=== PATIENT | male | born 1950 | race Caucasian/White ===

== ENCOUNTER 2021-03-17 07:51 | Outpatient (CLI) | payer MEDICARE ==
[2021-03-17 08:51] VITALS: BP 123/84
--- NOTE | 2021-03-17 08:51 | SLEEP CARE CONSULTATION ---
Information from patient questionnaire entered by Joyce Hackett. I have reviewed and concur with the information entered by Joyce Hackett. This document represents the service I personally performed and the decisions made by me, Sobeida Gillespie ARNP. History of Present Illness Service Date and Time: 03/17/2021 0751 Reason for Visit: New patient, Previously diagnosed sleep apnea, sleep apnea on CPAP therapy Chief Complaint: reports: Other (update supplies) Date of Onset: entire adult life Usual bedtime: 9: - 10 pm Time it takes to fall asleep: 5 minutes Snores at night: Yes (without CPAP) Observed to quit breathing while asleep: Yes Sleeps alone due to snoring: No Number of times waking at night: 1 Reasons for waking at night: reports: Bathroom Toss, Turn, or Twitch while sleeping: Yes Recalls having dreams: Yes Usually gets out of bed at: 6-7 am Feels refreshed in the morning: Yes Morning headache: No Sleepy or fatigued during the day: No Ever fallen asleep while driving: No Takes day naps: No Dreams during day naps: No Prior sleep studies: Yes Year and Where: mid - [facility] in [place], [place] Additional HPI information: RAUL GARLAND was previously diagnosed to have unknown severity sleep apnea- hypopnea syndrome and comes in today to establish care for CPAP therapy. He moved to the area in November 2020 and needs to establish care to get supplies. - Parasomnia Symptoms Ever been unable to move upon waking from sleep: No Walks in sleep: No Talks in sleep: No Ever acted out dreams in sleep: No Ever felt weak in the knees when startled or emotional: No Bothered by creepy, crawly, restless sensations in legs: No Problems with memory or concentration: No CPAP Compliance Data - Data Reviewed with Patient Average duration of nightly device use: 7 hr 57 min Compliance rate %: 100 (180 days) Current pressure setting (cmH2O): 6.6-11 Average residual AHI: 1.0 Compliance data discussion: He has been getting his supplies from [employer]. He is using a [employer] Seal ([id number]), size medium mask. He has backup if needed. He last changed out the mask about a month ago. Subjective Patient concerns: reports: condensation in mask/hose (occasionally). denies: aerophagia, mask discomfort, air blowing in eyes, mask leak noise, nasal congestion, dry mouth, nose, throat, epistaxis, other Observed to snore while using device: No Current pressure setting perceived as: comfortable On therapy, patient: reports: sleeping better, awakening more refreshed, being more awake and alert during the day, more rested overall. denies: drowsiness while driving Initial [place] Sleepiness Scale score: 11 (in 2020) Past Medical History Past Medical History: reports: Arthritis, Coronary Heart Disease, Asthma, Other (hay fever, ulcerative colitis) Social History The patient's occupation is a Retired. Patient is and lives in [place]. Have you smoked in the past 12 months: No Alcohol use: Yes Alcohol amount and frequency: 4 glasses a week spread over sunday-sunday Caffeine use: Yes Caffeine amount and frequency: 1 cup every day Family History Family history of sleep disordered breathing: Yes Family Hx Sleep Apnea: Father: Snoring Allergies and Home Medications Drug allergies reviewed: Yes (niacin, morphine (vomit)) Home medication list reviewed: Yes Allergy and home medication list: Metoprolol Tartrate Balsalazide Atorvastatin Review of Systems Weight gain over past 5 years: 10 Cardiovascular: denies: high blood pressure Gastrointestinal: reports: other (ulcerative colitis). denies: heartburn Neurological: denies: headaches Psychiatric: denies: anxiety, depression Ear/Nose/Throat: reports: nasal congestion, sinus problems, tonsillectomy, wisdom teeth removed (upper) Immunologic: reports: sneezing, allergies to food or environment Physical Exam Blood Pressure: 123/84 Cuff size: wrist Heart Rate: 47 O2 Saturation: 98 Height: 5 ft 8 in Weight: 200 lb Body Mass Index: 30.4 BMI Classification: Obese Impression and Plan 1. Obstructive Sleep Apnea-Hypopnea Syndrome, unknown, with good treatment compliance and good apnea control. On CPAP therapy, the patient has better sleep quality and is more rested overall. He is very satisfied with his CPAP therapy and intends to use long-term. He was advised that we need a copy of his last sleep study before we can fax order for his supplies to be updated. He will try to get this and if unable we will order a sleep study to verify diagnosis and severity. He voice understanding and agreement with plan of care. He was encouraged to lose weight and patient voiced understanding. Patient's apnea severity and rationale for treatment to reduce apnea, improve sleep quality and reduce cardiovascular and cerebrovascular events was reviewed. I also reviewed the benefit of consistent device use of CPAP for cardiac disease. * Continue auto CPAP pressure at 6.6-11 cmH2O * Notify me if snoring with mask or feeling that the pressure is too much or too little * Attempt to lose weight * Call this office if any problems using CPAP * Return for follow up in 1 year, or sooner if concerns arise Counseling Topics: Spare mask, Weight loss health impact Visit Type: In Office Time Spent with Patient (minutes): 30 Provider Statement: I spent 100% of the Face to Face Visit with the patient with greater than 50% spent counseling the patient and coordination of care.
== END 2021-03-17 07:52 | disposition home or self-care (01) ==
LOC: SC 07:51
PROVIDERS: ATTEND Nurse Practitioner Family
DX: G47.33 Obstructive sleep apnea (adult) (pediatric) (principal); E66.9 Obesity, unspecified; Z68.30 Body mass index [BMI] 30.0-30.9, adult
CPT/HCPCS: 99203; G0463; 99212

== ENCOUNTER 2021-04-01 08:51 | Outpatient (CLI) | payer MEDICARE | END 2021-04-01 08:52 | disposition home or self-care (01) | LOC: SC 08:51 | PROVIDERS: ATTEND Nurse Practitioner Family | DX: G47.33 Obstructive sleep apnea (adult) (pediatric) (principal); R09.02 Hypoxemia; E66.9 Obesity, unspecified; Z68.30 Body mass index [BMI] 30.0-30.9, adult | CPT/HCPCS: G0399 ×2; 95806 ==

== ENCOUNTER 2021-04-14 13:33 | Outpatient (CLI) | payer MEDICARE ==
--- NOTE | 2021-04-14 14:06 | SLEEP CARE CONSULTATION ---
Information from patient questionnaire entered by Joyce Hackett. I have reviewed and concur with the information entered by Joyce Hackett. This document represents the service I personally performed and the decisions made by , Sobeida Gillespie ARNP. History of Present Illness Service Date and Time: 04/14/2021 1333 Initial [place] Sleepiness Scale score: 11 (in 2020) Current [place] Sleepiness Scale score: 4 Additional HPI information: RAUL GARLAND returns via Telehealth visit for follow up and results of the recently performed home sleep study. I explained the pathophysiology behind obstructive sleep apnea. We then spent quite a bit of time discussing different treatment options. For mild obstructive sleep apnea, surgery and oral appliance are alternatives to nasal CPAP therapy but in moderate or severe cases, nasal CPAP is the most effective and reliable treatment. I reviewed the impact of weight changes on sleep apnea and recommended losing weight. Patient to continue with use of CPAP. Study was ordered to verify diagnosis and severity since his last sleep study was unavailable. Patient was cautioned about risks of drowsy driving until sleepiness symptoms resolve. Sleep Study - Results Type of Sleep Study: Home sleep study Prior sleep studies: Yes Year and Where: mid - [facility] in [place], [place] Polysomnography/Home Sleep Study results: Physician Impression: The quality of the study is good. The length of the study is adequate (> 240 minutes). Please also see the tabulated and graphic data. 1. Obstructive Sleep Apnea-Hypopnea (ICD-10 G47.33), moderate, with an AHI of 28.4/hr and chester SaO2 of 58%. During the study, the patient had 204 apneas (203 obstructive, 0 central, 1 mixed) and 30 hypopneas. The longest episode lasted 138.5 seconds. The respiratory events occurred more frequently during supine sleep (supine AHI was 54.0 and non-supine, 9.70). 2. Hypoxemia (ICD-10 R09.02), severe, with the lowest oxygen saturation of 58 % and 68.7 minutes with SaO2 under 90%. Baseline oxygen saturation was normal (Average oxygen saturation was 93%). Allergies and Home Medications Home medication list reviewed: Yes (no new meds) Review of Systems Review of systems same as previous: Yes (no changes) Physical Exam Vital signs obtained and entered by: Telehealth visit, no vitals obtained Height: 5 ft 8 in Impression and Plan 1. Obstructive Sleep Apnea-Hypopnea Syndrome, moderate, with lowest oxygen saturation of 58%. Positive pressure therapy could benefit cardiac disease (right ventricle irregularity). The patient will be continued on nasal autoCPAP therapy with pressure set at 6.6-11 cmH2O. Compliance guidelines also reviewed. Patient is compliant with his CPAP use and I will fill out a prescription to update his supplies since he has not been able to get any for the last 6 months. I will follow-up with him next year. 2. Hypoxemia, severe, with the lowest oxygen saturation of 58 % and 68.7 minutes with SaO2 under 90%. His baseline oxygen saturation was normal with an average oxygen saturation of 93%. Patient has a history of cardiac disease and he was advised to follow up with his PCP as needed. * Continue auto CPAP pressure at 6.6-11 cmH2O * Update supplies * Follow up as needed with PCP for severe Hypoxemia * Notify me if snoring with mask or feeling that the pressure is too much or too little * Attempt to lose weight * Call this office if any problems using CPAP * Return for follow up in 1 year, or sooner if concerns arise Counseling Topics: Weight loss health impact Visit Type: Telehealth Video Video Type: VSee Patient Location: Home Location of Provider: Office Patient agrees and consents to this telehealth visit type: Yes Patient agrees to have their insurance billed: Yes Provider Statement: I spent 100% of the Telehealth Video Call with the patient with greater than 50% spent counseling the patient and coordination of care.
== END 2021-04-14 13:34 | disposition home or self-care (01) ==
LOC: SC 13:33
PROVIDERS: ATTEND Nurse Practitioner Family
DX: G47.33 Obstructive sleep apnea (adult) (pediatric) (principal); R09.02 Hypoxemia

== ENCOUNTER 2022-08-17 09:42 | Outpatient (CLI) | payer MEDICARE ==
[2022-08-17 10:26] VITALS: BP 140/90
--- NOTE | 2022-08-17 10:26 | SLEEP CARE CONSULTATION ---
Information from patient questionnaire entered by Carlita Landers. I have reviewed and concur with the information entered by Carlita Landers. This document represents the service I personally performed and the decisions made by me, Sobeida Gillespie ARNP. History of Present Illness Service Date and Time: 08/17/2022 0942 Previous diagnosis: Moderate, Obstructive Sleep Apnea-Hypopnea Syndrome AHI: 28.4 Reason for follow up: annual (LAST SEEN ) Equipment type: CPAP Equipment obtained from: [facility] (getting supplies as needed) Mask style: Nasal Backup mask available: Yes (old mask) Last cushion change: 2 weeks Prior sleep studies: Yes Year and Where: mid - [place], [place] Type of Sleep Study: Home sleep study HPI additional information: RAUL GARLAND was diagnosed to have moderate, AHI 28.4, obstructive sleep apnea-hypopnea syndrome and returned today for CPAP therapy annual follow-up. Sleep Study - Results Type of Sleep Study: Home sleep study Prior sleep studies: Yes Year and Where: - [place], [place] CPAP Compliance Data - Data Reviewed with Patient Average duration of nightly device use: 8 hours 5 minutes Compliance rate %: 100 (180/180 days used) Current pressure setting (cmH2O): 6-9 Average residual AHI: 1.7 Central apnea: 0.2 Obstructive apnea: 0.6 Subjective Patient concerns: reports: mask leak noise (from condensation), condensation in mask/hose, epistaxis (improved, hx of bloody noses/sinus issue; vaseline at night helps too). denies: aerophagia, mask discomfort, air blowing in eyes, nasal congestion, dry mouth, nose, throat Observed to snore while using device: No Current pressure setting perceived as: comfortable On therapy, patient: reports: sleeping better, awakening more refreshed, being more awake and alert during the day, more rested overall. denies: drowsiness while driving Initial [place] Sleepiness Scale score: 11 (in 2020) Current [place] Sleepiness Scale score: 8 (08/17/2022) Allergies and Home Medications Drug allergies reviewed: Yes (NKDA) Home medication list reviewed: Yes (no changes) Review of Systems Review of systems same as previous: Yes (no changes) Physical Exam Vital signs obtained and entered by: CARLITA Paulson MA Blood Pressure: 140/90 (left arm) Cuff size: regular Heart Rate: 68 O2 Saturation: 98 Height: 5 ft 8 in Weight: 132 lb 9.6 oz Body Mass Index: 20.1 BMI Classification: Normal Impression and Plan 1. Obstructive Sleep Apnea-Hypopnea Syndrome, moderate, with good treatment compliance and good apnea control. On CPAP therapy, the patient has better sleep quality and is more rested overall. Patient has been getting some condensation in his mask/tubing waking up because of the noise and his mask being wet. He does use the humidity on his machine, otherwise he gets really dry and has more epistaxis. He has a long history of sinus issues and bloody noses. They have improved when he remembers to use his Vaseline and humidity on the CPAP. He stated that he did not have a heated hose for his machine and I encouraged him to order one from his DME to use with his [employer]Med because this can help reduce condensation in tubing and mask. He voiced understanding. Patient has significant improvement of their sleep apnea and are satisfied with current CPAP therapy. Patient's apnea severity and rationale for treatment to reduce apnea, improve sleep quality and reduce cardiovascular and cerebrovascular events was reviewed. I also reviewed the benefit of consistent device use of CPAP for cardiac disease. * Continue auto CPAP pressure at 6-9 cmH2O * Update supplies * Notify me if snoring with mask or feeling that the pressure is too much or too little * Call this office if any problems using CPAP * Return for follow up in 1 year, or sooner if concerns arise Counseling Topics: Spare mask Visit Type: In Office Time Spent with Patient (minutes): 21 Provider Statement: I spent 100% of the Face to Face Visit with the patient with greater than 50% spent counseling the patient and coordination of care.
== END 2022-08-17 09:43 | disposition home or self-care (01) ==
LOC: SC 09:42
PROVIDERS: ATTEND Nurse Practitioner Family
DX: G47.33 Obstructive sleep apnea (adult) (pediatric) (principal)
CPT/HCPCS: 99213; G0463; 99212

== ENCOUNTER 2022-12-14 11:58 | Day surgery (SDC) | payer MEDICARE ==
[2022-12-14] MEDS ORDERED: LACTATED RINGERS 1,000 ML IV ONE ×2 (12:28→14:42)
[2022-12-14] MEDS ORDERED: LIDOCAINE MPF 2%-EPI 1:200000 20 ML VIAL ONE (12:36)
[2022-12-14] MEDS ORDERED: BUPIVACAINE 0.25% PF 30 ML VIAL ONE (12:36)
[2022-12-14] MEDS ORDERED: LIDOCAINE-PF 2% 10 ML AMP SUBQ ONE (12:44)
--- NOTE | 2022-12-14 12:57 | ANESTHESIA ---
Pre-Anesthesia VS, & Labs - Diagnosis Epidermal inclusion cysts at posterior neck (3) - Procedure excision cysts at posterior neck Vital Signs: Temp Pulse Resp BP Pulse Ox O2 Flow Rate 36.2 C L 59 L 10 L 155/90 H 100 12/14/22 12:25 12/14/22 12:25 12/14/22 12:25 12/14/22 12:25 12/14/22 12:25 Height: 5 ft 8 in Weight (kg): 87 kg Body Mass Index: 29.1 BMI Classification: Overweight - NPO >8 hours - Lab Results Lab results reviewed: Yes Home Medications and Allergies Home Medications: Ambulatory Orders Aspirin [Aspirin EC] 81 mg PO DAILY 12/08/22 Balsalazide Disodium [Colazal] 750 mg PO DAILY 12/08/22 Cholecalciferol [Vitamin D3] 25 mcg PO DAILY 12/08/22 Glucos Sul 2Kcl/MSM/Chond/C/Mn [Glucosamine Chondroitin Cap] 1 each PO DAILY 12/08/22 Metoprolol Tartrate [Lopressor] 25 mg PO BID 12/08/22 Multivitamin 1 each PO DAILY 12/08/22 [place]-3/Dha/Epa/Fish Oil [Fish Oil 1,000 mg Softgel] 1 each PO DAILY 12/08/22 Simvastatin [Zocor] 40 mg PO DAILY 12/08/22 Aspirin [Aspirin EC] 81 mg PO DAILY 12/08/22 Balsalazide Disodium [Colazal] 750 mg PO DAILY 12/08/22 Cholecalciferol [Vitamin D3] 25 mcg PO DAILY 12/08/22 Glucos Sul 2Kcl/MSM/Chond/C/Mn [Glucosamine Chondroitin Cap] 1 each PO DAILY 12/08/22 Metoprolol Tartrate [Lopressor] 25 mg PO BID 12/08/22 Multivitamin 1 each PO DAILY 12/08/22 [place]-3/Dha/Epa/Fish Oil [Fish Oil 1,000 mg Softgel] 1 each PO DAILY 12/08/22 Simvastatin [Zocor] 40 mg PO DAILY 12/08/22 Allergies/Adverse Reactions: Allergies Allergy/AdvReac Type Severity Reaction Status Date / Time No Known Drug Allergies Allergy Verified 08/17/22 10:04 Anes History & Medical History - Anesthetic History Anesthesia Complications: reports: No previous complications Family history of Anesthesia Complications: Denies Family history of Malignant Hyperthermia: Denies - Medical History Cardiovascular: reports: Hypertension, High cholesterol Pulmonary: reports: Sleep apnea, CPAP use Gastrointestinal: reports: Ulcerative colitis Urinary: reports: None Musculoskeletal: reports: None Endocrine/Autoimmune: reports: None Skin: reports: None - Surgical History General: reports: Appendectomy, Colonoscopy Eyes Ears Nose Throat (EENT): reports: Other Orthopedic: reports: Spine surgery Dermatologic: reports: Other (arm cyst excision in office) Exam General: Alert, Oriented x3, Cooperative Dental: WNL Mouth Openin Fingerbreadth Neck Mobility: Normal Mallampati classification: II Thyromental Distance: 4-6 cm Respiratory: Lungs clear, Normal breath sounds, No respiratory distress Cardiovascular: Regular rate Neurological: Normal speech Mental/Cognitive Status: Alert/Oriented X3, Normal for patient Cognitive Status: Within normal limits Plan Anesthesia Type: MAC, Total IV (backup) Consent for Procedure(s) Verified and Reviewed: Yes Code Status: Attempt Resuscitation ASA classification: 2-Mild systemic disease Is this case an emergency?: No
--- NOTE | 2022-12-14 13:52 | HISTORY & PHYSICAL EXAMINATION ---
Chief Complaint - Chief Complaint Chief Complaint: neck cysts History of Present Illness - History Obtained From Records Reviewed: yes History obtained from: pt Exam Limitations: none - History of Present Illness HPI Comment/Other: posterior neck cysts and history neck cyst pain and inflammation History - Past Medical History Cardiovascular: reports: Hypertension, High cholesterol Respiratory: reports: Sleep apnea, CPAP use Endocrine/Autoimmune: reports: None GI: reports: Ulcerative colitis : reports: None HEENT: reports: Chronic vision loss Psych: reports: None Musculoskeletal: reports: None Derm: reports: None MRSA Hx?: No - Past Surgical History General: reports: Appendectomy, Colonoscopy Ortho: reports: Spine surgery HEENT: reports: Other Derm: reports: Other (arm cyst excision in office) Meds/Allgy - Home Medications Home Medications: Ambulatory Orders Medication Instructions Recorded Confirmed Aspirin [Aspirin EC] 81 mg PO DAILY 12/08/22 12/08/22 Balsalazide Disodium [Colazal] 750 mg PO DAILY 12/08/22 12/08/22 Cholecalciferol [Vitamin D3] 25 mcg PO DAILY 12/08/22 12/08/22 Glucos Sul 2Kcl/MSM/Chond/C/Mn 1 each PO DAILY 12/08/22 12/08/22 [Glucosamine Chondroitin Cap] Metoprolol Tartrate [Lopressor] 25 mg PO BID 12/08/22 12/08/22 Multivitamin 1 each PO DAILY 12/08/22 12/08/22 [place]-3/Dha/Epa/Fish Oil [Fish Oil 1 each PO DAILY 12/08/22 12/08/22 1,000 mg Softgel] Simvastatin [Zocor] 40 mg PO DAILY 12/08/22 12/08/22 - Allergies Allergies/Adverse Reactions: Allergies Allergy/AdvReac Type Severity Reaction Status Date / Time No Known Drug Allergies Allergy Verified 08/17/22 10:04 Review of Systems - Other Findings Other Findings: 10 pt ros as above otherwise unremarkable Exam - Vital Signs Reviewed Vital Signs: Yes Vital Signs: Vital Signs x48h Temp Pulse Resp BP Pulse Ox 12/14/22 12:25 36.2 C L 59 L 10 L 155/90 H 100 - Physical Exam General Appearance: positive: No acute distress, Alert Eyes Bilateral: positive: PERRL, EOMI, No scleral icterus ENT: positive: No signs of dehydration Neck: positive: No JVD, Trachea midline, Other (3 posterion to lateral epidermal inclusion cysts) Respiratory: positive: No respiratory distress, Breath sounds nml Cardiovascular: positive: Regular rate & rhythm Neurologic/Psychiatric: positive: Oriented x3 Conclusion/Plan - Problem List (1) Epidermal inclusion cyst Conclusion/Plan: plan excision cysts. parq held and consent obtained - Lab Results Lab results reviewed: Yes
[2022-12-14] MEDS ORDERED: LIDOCAINE MPF 2%-EPI 1:200000 20 ML VIAL SUBQ ONE ×2 (14:16)
[2022-12-14] MEDS ORDERED: BUPIVACAINE 0.25% PF 30 ML VIAL SUBQ ONE ×2 (14:16)
[2022-12-14] MEDS ORDERED: HYDROcod/ACETAM 5/325 MG TABLET PO PRN (14:46)
--- NOTE | 2022-12-14 14:53 | ANESTHESIA POST OP EVALUATION ---
Anesthesia Post Eval - Post Anesthesia Eval Vitals: Last Vital Signs Temp 36.2 C L 12/14/22 12:25 Pulse 58 L 12/14/22 14:44 Resp 16 12/14/22 14:44 BP 144/90 H 12/14/22 14:44 Pulse Ox 98 12/14/22 14:44 O2 Flow Rate CV Function Including HR & BP: Stable Pain Control: Satisfactory Nausea & Vomiting: Negative Mental Status: Baseline Respiratory Status: Airway Patent Hydration Status: Satisfactory Anesthesia Complications: None
[2022-12-14 14:59] VITALS: BP 145/90
--- NOTE | 2022-12-14 15:00 | OPERATIVE REPORT ---
Operative Report - General Procedure Date: 12/14/22 Planned Procedure: excision 3 posterior neck epidermal inclusion cysts Pre-Op Diagnosis: posterior neck epidermal inclusion cysts Procedure Performed: excision 3 5 to 10 mm epidermal inclusion cysts posterior neck Post Op Diagnosis: same - Procedure Note Primary Surgeon: isra carias Anesthesia Technique: Local, MAC Pathology: benign. not sent Estimated Blood Loss (mL): 2 Indications: previously inflamed epidernal inclusion cysts Findings: as above Complications: none - Other Other Information/Narrative: The patient was properly identified brought to the operating room and placed left lateral decubitus position monitored anesthesia care and IV sedation was given he was prepped and draped in a sterile fashion. Antibiotics were not given. The 3 posterior right lateral neck epidermal inclusion cyst all measured 5 to 10 mm. All were excised with an elliptical incision measuring approximately 10 mm. There were removed sharply intact. Hemostasis was assured with cautery. Intermediate repair was performed. Buried interrupted 3-0 Vicryl was placed followed by buried interrupted subdermal 4-0 Monocryl sutures. Owen ri-Strips and dressings were applied. He tolerated the procedure well was brought to recovery in good condition.
== END 2022-12-14 11:59 | disposition home or self-care (01) ==
LOC: SDS 11:58
PROVIDERS: ATTEND Surgery
DX: L72.0 Epidermal cyst (principal); G47.30 Sleep apnea, unspecified
CPT/HCPCS: 11421; 12041; J7120

== ENCOUNTER 2023-02-01 09:26 | Outpatient (CLI) | payer MEDICARE ==
[2023-02-01 09:50] VITALS: BP 108/66
--- NOTE | 2023-02-01 09:50 | SLEEP CARE CONSULTATION ---
Information from patient questionnaire entered by Flaquita Landers. I have reviewed and concur with the information entered by Flaquita Landers. This document represents the service I personally performed and the decisions made by me, Sobeida Gillespie ARNP. History of Present Illness Service Date and Time: 02/01/2023925 Previous diagnosis: Moderate, Obstructive Sleep Apnea-Hypopnea Syndrome AHI: 28.4 Reason for follow up: first compliance after device update Equipment type: CPAP (RESMED Airsense 11, reyes 11/2022) Equipment obtained from: [employer] (getting supplies as needed) Mask style: Nasal Mask brand: [employer] ([place]son) Backup mask available: Yes (old mask) Last cushion change: 2 weeks Prior sleep studies: Yes Year and Where: - [place], [place] Type of Sleep Study: Home sleep study HPI additional information: RAUL GARLAND was diagnosed to have moderate, AHI 28.4, obstructive sleep apnea-hypopnea syndrome and returned today for CPAP therapy first compliance after updating device follow-up. Sleep Study - Results Type of Sleep Study: Home sleep study Prior sleep studies: Yes Year and Where: - [place], [place] CPAP Compliance Data - Data Reviewed with Patient Average duration of nightly device use: 7 HRS 58 MINS Compliance rate %: 100 (01/01/23-01/30/23; 30/30 days used) Current pressure setting (cmH2O): 6-9 Average residual AHI: 1.5 Central apnea: 0.5 Obstructive apnea: 0.1 Average large leak: 0 Subjective Patient concerns: reports: condensation in mask/hose (in hose, improved with heated hose). denies: aerophagia, mask discomfort, air blowing in eyes, mask leak noise, nasal congestion, dry mouth, nose, throat, epistaxis Observed to snore while using device: No Current pressure setting perceived as: comfortable On therapy, patient: reports: sleeping better, awakening more refreshed, being more awake and alert during the day, more rested overall. denies: drowsiness while driving Initial [place] Sleepiness Scale score: 11 (in 2020) Current [place] Sleepiness Scale score: 7 (02/01/23) Allergies and Home Medications Known drug allergies: No Drug allergies reviewed: Yes Home medication list reviewed: Yes (no changes) Allergy and home medication list: Allergies No Known Drug Allergies Allergy (Verified 01/31/23 13:10) Review of Systems Review of systems same as previous: No (root canal; minor cyst removal on neck) Physical Exam Vital signs obtained and entered by: FLAQUITA Paulson MA Blood Pressure: 108/66 (LEFT ARM) Cuff size: regular Heart Rate: 45 O2 Saturation: 98 Height: 5 ft 8 in Weight: 197 lb 6.4 oz Body Mass Index: 29.9 BMI Classification: Overweight Impression and Plan 1. Obstructive Sleep Apnea-Hypopnea Syndrome, moderate, with good treatment compliance and good apnea control. On CPAP therapy, the patient has better sleep quality and is more rested overall. He is liking the new device and states the adjustment of pressure after getting new machine helped a lot with his comfort. He does still get some condensation in the tubing, but the new heated hose has reduce this some. I advised to try a tubing cover over the tube as well as putting machine lower than his head to reduce condensation too. He voiced understanding. We will follow up with him next year. Patient's apnea severity and rationale for treatment to reduce apnea, improve sleep quality and reduce cardiovascular and cerebrovascular events was reviewed. I also reviewed the benefit of consistent device use of CPAP for cardiac disease. 2. Overweight, unspecified. Currently patients BMI is 29.9. Obesity increases the risk of apnea, CPAP pressure requirements and overall health risks especially cardiovascular and diabetes. Thus patient is advised to lose weight. * Continue auto CPAP pressure at 6-9 cmH2O * Notify me if snoring with mask or feeling that the pressure is too much or too little * Attempt to lose weight * Call this office if any problems using CPAP * Return for follow up in 1 year, or sooner if concerns arise Counseling Topics: Spare mask, Weight loss health impact Visit Type: In Office Time Spent with Patient (minutes): 20 Provider Statement: I spent 100% of the Face to Face Visit with the patient with greater than 50% spent counseling the patient and coordination of care.
== END 2023-02-01 09:27 | disposition home or self-care (01) ==
LOC: SC 09:26
PROVIDERS: ATTEND Nurse Practitioner Family
DX: G47.33 Obstructive sleep apnea (adult) (pediatric) (principal); E66.3 Overweight; Z68.29 Body mass index [BMI] 29.0-29.9, adult
CPT/HCPCS: 99213; G0463; 99212

== ENCOUNTER 2023-12-19 12:59 | Outpatient (CLI) | payer MEDICARE ==
--- NOTE | 2023-12-19 16:14 | XRAY Report ---
PROCEDURE: Wrist 3+V LT INDICATIONS: LEFT HAND PAIN TECHNIQUE: 3 views of the wrist were acquired. COMPARISON: None. FINDINGS: Bones: No discrete fracture or dislocation. Mild degenerative changes at the first CMC and STT joint s. There is mild widening of the scapholunate interval. Soft tissues: No suspicious soft tissue calcifications or masses. IMPRESSION: Mild first CMC and STT degenerative changes. There is mild widening of the scapholunate interval, whi ch can be seen with ligamentous injury. If there is high concern for further derangement, consider MR I evaluation. Reviewed by: Brad Walker MD on 12/19/2023 4:13 PM PST Approved by: Brad Walker MD on 12/19/2023 4:13 PM PST Station ID: [id number]
--- NOTE | 2023-12-19 21:36 | XRAY Report ---
PROCEDURE: Hand 3+V LT INDICATIONS: LEFT HAND PAIN TECHNIQUE: 3 view(s) of the hand(s) acquired. COMPARISON: None FINDINGS: Bones: No fractures or dislocations. No suspicious bony lesions. Soft tissues: No suspicious soft tissue calcifications. IMPRESSION: Unremarkable hand radiographs Reviewed by: Dm Sam MD on 12/19/2023 8:35 PM AKST Approved by: Dm Sam MD on 12/19/2023 8:35 PM AKST Station ID: [id number]
== END 2023-12-19 13:00 | disposition home or self-care (01) ==
LOC: DI 12:59
PROVIDERS: ATTEND Student in an Organized Health Care Education/Training Program
DX: M18.12 Unilateral primary osteoarthritis of first carpometacarpal joint, left hand (principal)

== ENCOUNTER 2024-02-12 09:09 | Outpatient (CLI) | payer MEDICARE ==
--- NOTE | 2024-02-12 09:30 | Sleep Patient Instructions ---
Sleep Center Visit Summary - Patient Visit Information Reason for Visit: Annual follow-up - Patient Instructions Additional Instructions: You will continue with CPAP therapy with pressure set at 6-9 cmH2O. A supply prescription will be updated with your DME. We encourage you to continue to try to lose weight. Please follow up with the sleep care office in 1 year. - Clinic Information Contact: [facility] [address] [place] [address] [email or web address] T: [phone]
--- NOTE | 2024-02-12 09:34 | SLEEP CARE CONSULTATION ---
Information from patient questionnaire entered by Flaquita Landers. I have reviewed and concur with the information entered by Flaquita Landers. This document represents the service I personally performed and the decisions made by me, Sobeida Gillespie ARNP. History of Present Illness Service Date and Time: 02/12/2024 0909 Previous diagnosis: Moderate, Obstructive Sleep Apnea-Hypopnea Syndrome AHI: 28.4 Reason for follow up: annual (LAST SEEN 01/2023) Equipment type: CPAP (RESMED Airsense 11, reyes 11/2022) Equipment obtained from: [employer] (getting supplies as needed) Mask style: Nasal Mask brand: [employer] ([place]son) Backup mask available: Yes Last cushion change: couple weeks Prior sleep studies: Yes Year and Where: - [place], [place] Type of Sleep Study: Home sleep study HPI additional information: RAUL GARLAND was diagnosed to have moderate, AHI 28.4, obstructive sleep apnea-hypopnea syndrome and returned today for CPAP therapy annual follow-up. Sleep Study - Results Type of Sleep Study: Home sleep study Prior sleep studies: Yes Year and Where: mid - [place], [place] CPAP Compliance Data - Data Reviewed with Patient Average duration of nightly device use: 7 HRS 44 MINS Compliance rate %: 100 (02/07/23-02/06/24; 365/365 days used) Current pressure setting (cmH2O): 6-9 Average residual AHI: 1.5 Central apnea: 0.5 Obstructive apnea: 0.2 Hypopnea: 0.8 Average large leak: 0 L/min Subjective Patient concerns: reports: condensation in mask/hose (occasional, managable), epistaxis (during winter uses nasal moisturizer). denies: aerophagia, mask discomfort, air blowing in eyes, mask leak noise, nasal congestion, dry mouth, nose, throat Observed to snore while using device: No Current pressure setting perceived as: comfortable On therapy, patient: reports: sleeping better, awakening more refreshed, being more awake and alert during the day, more rested overall. denies: drowsiness while driving Initial [place] Sleepiness Scale score: 11 (in 2020) Current [place] Sleepiness Scale score: 7 (02/12/24) Allergies and Home Medications Known drug allergies: No Drug allergies reviewed: Yes Home medication list reviewed: Yes (no changes) Allergy and home medication list: Allergies No Known Drug Allergies Allergy (Verified 02/07/24 13:40) Review of Systems Review of systems same as previous: Yes (NO CHANGE) Physical Exam Vital signs obtained and entered by: FLAQUITA Paulson MA Blood Pressure: 129/85 (RIGHT ARM) Cuff size: regular Heart Rate: 53 O2 Saturation: 98 Height: 5 ft 8 in Weight: 204 lb Weight change since last visit: 7 lb gain Body Mass Index: 31.0 BMI Classification: Obese Impression and Plan 1. Obstructive Sleep Apnea-Hypopnea Syndrome, moderate, with good treatment compliance and good apnea control. On CPAP therapy, the patient has better sleep quality and is more rested overall. Patient has significant improvement of their sleep apnea and is satisfied with current CPAP therapy. He says he still gets a little condensation but it is manageable improved from last year. He occasionally gets bloody noses but says this is normal and he uses a nasal moisturizer during the wintertime that reduces the epistaxis. Patient's apnea severity and rationale for treatment to reduce apnea, improve sleep quality and reduce cardiovascular and cerebrovascular events was reviewed. I also reviewed the benefit of consistent device use of CPAP for cardiac disease. 2. Obesity, unspecified. Currently patients BMI is 31. Obesity increases the risk of apnea, CPAP pressure requirements and overall health risks especially cardiovascular and diabetes. Thus patient is advised to lose weight. * Continue auto CPAP pressure at 6-9 cmH2O * Update supply prescription * Notify me if snoring with mask or feeling that the pressure is too much or too little * Attempt to lose weight * Call this office if any problems using CPAP * Return for follow up in 12 months, or sooner if concerns arise Counseling Topics: Spare mask, Weight loss health impact Prescriptions: Device supplies Follow up with Sleep Care in: 1 year Visit Type: In Office Time Spent with Patient (minutes): 20 Provider Statement: I spent 100% of the Face to Face Visit with the patient with greater than 50% spent counseling the patient and coordination of care.
[2024-02-12 09:35] VITALS: BP 129/85; O2SAT 98
== END 2024-02-12 09:10 | disposition home or self-care (01) ==
LOC: SC 09:09
PROVIDERS: ATTEND Nurse Practitioner Family
DX: G47.33 Obstructive sleep apnea (adult) (pediatric) (principal); E66.9 Obesity, unspecified; Z68.31 Body mass index [BMI] 31.0-31.9, adult
CPT/HCPCS: 99213; G0463; 99212